=== PATIENT | female | born 1935 | race African-American/Black ===

== ENCOUNTER 2022-01-15 09:33 | Inpatient (IN) | payer OTHER ==
[~2022-01-15] VITALS: Ht 160 cm; Wt 63.2 kg
[2022-01-15] MEDS ORDERED: MECLIZINE 25MG TABLET PO ONE (10:15)
[2022-01-15] MEDS ORDERED: SODIUM CHLORIDE 0.9% 1,000 ML IV ONE (10:15)
[2022-01-15 10:25] LABS: BASOPHILS % 0.5 % (0.0-2.0); EOSINOPHILS % 1.1 % (0.0-5.0); HEMATOCRIT. 37.4 % (36.0-48.0); HEMOGLOBIN. 12.6 g/dL (12.0-16.0); MEAN CORPUSCULAR HEMOGLOBIN 31.7 pg (28.0-32.0); MEAN CORPUSCULAR VOLUME 93.9 fL (81.0-99.0); MEAN PLATELET VOLUME 9.9 fl (7.4-10.4); MONOCYTES % 6.2 % (2.0-8.0); NEUTROPHILS % 51.2 % (40.0-76.0); PLATELET 175 x1000/uL (130-400); RED BLOOD CELL COUNT 3.98 mill/uL (4.2-5.4); RED CELL DISTRIBUTION WIDTH 13.8 % (11.6-14.6)
[2022-01-15 10:34] LABS: PROTHROMBIN TIME 10.7 sec (9.6-11.0)
[2022-01-15 10:35] LABS: CHLORIDE 104 mEq/L (98-107)
[2022-01-15] MEDS ORDERED: POTASSIUM CHLORIDE 20MEQ TABLET SR PO ONE (11:45)
[2022-01-15] MEDS ORDERED: KCL 10MEQ/50ML PREMIX 50 ML IV ONE (11:45)
[2022-01-15 12:34] LABS: CLARITY URINE CLEAR (CLEAR); COLOR URINE YELLOW (YELLOW); KETONES URINE TRACE (NEGATIVE); LEUKOCYTE ESTERASE URINE 2+ (NEGATIVE); NITRITE URINE NEGATIVE (NEGATIVE); OCCULT BLOOD URINE NEGATIVE (NEGATIVE); PH URINE 6.5 (4.5-8.0); PROTEIN URINE TRACE (NEGATIVE); UROBILINOGEN URINE 0.2 E.U./dL (0.2-1.0)
[2022-01-15] MEDS ORDERED: CEFTRIAXONE 1 G PREMIX 50 ML IV ONE (13:45)
[2022-01-15] MEDS ORDERED: ASPIRIN 325MG TABLET PO ONE (13:45)
[2022-01-15 16:30] VITALS: BP 120/39
[2022-01-15 17:00] VITALS: BP 120/39
[2022-01-15 20:00] VITALS: BP 143/48
[2022-01-16] VITALS: BP 124/47
[2022-01-16] MEDS ORDERED: DIPHENHYDRAMINE 50MG/ML VIAL IV PRN (00:45)
[2022-01-16] MEDS ORDERED: MAGNESIUM/ALUMINUM HYDROXIDE/SIMETHICONE 30ML UDC PO PRN (00:45)
[2022-01-16] MEDS ORDERED: ACETAMINOPHEN 325MG TABLET PO PRN ×2 (00:45)
[2022-01-16] MEDS ORDERED: DEXTROSE 50% WATER 50ML SYRINGE IV PRN (00:45)
[2022-01-16] MEDS ORDERED: ZOLPIDEM TARTRATE 5MG TABLET PO PRN (00:45)
[2022-01-16] MEDS ORDERED: CLONIDINE 0.1MG TABLET PO PRN (00:45)
[2022-01-16] MEDS ORDERED: MECLIZINE 25MG TABLET PO PRN (00:45)
[2022-01-16] MEDS ORDERED: ONDANSETRON HCL 4MG/2ML INJ IV PRN (00:45)
[2022-01-16 04:00] VITALS: BP 114/34
[2022-01-16] MEDS: SODIUM CHLORIDE 0.9% INJ 3ML FLUSH IVF SCH ×2 (06:07→13:47)
[2022-01-16] MEDS: BLOOD SUGAR DIAGNOSTIC STRIP TEST SCH ×2 (06:07→12:00)
[2022-01-16] MEDS: INSULIN LISPRO 100 UNITS/ML SUBCUT SCH ×2 (06:08→12:01)
[2022-01-16 08:00] VITALS: BP 110/62
[2022-01-16 09:09] LABS: CHLORIDE 106 mEq/L (98-107)
[2022-01-16 09:19] LABS: HDL CHOLESTEROL 60 mg/dL (40-59); LDL CHOLESTEROL 76 mg/dL (5-100)
[2022-01-16 12:00] VITALS: BP 125/52
[2022-01-16 15:05] VITALS: BP 125/52
== END 2022-01-16 16:10 | disposition home or self-care (01) | DRG 149 ==
LOC: ER 09:33 → 7EST 14:38 → EDBEDREQTM 14:41 → EDBEDREQ 14:42 → ENRESERV 15:28
PROVIDERS: ADMIT Internal Medicine; ATTEND Internal Medicine
DX: R42 Dizziness and giddiness (principal); N39.0 Urinary tract infection, site not specified; E87.6 Hypokalemia; R73.03 Prediabetes; R55 Syncope and collapse
CPT/HCPCS: 36415; 71045; 80048; 80053; 80061; 81003; 82962; 83036; 83735; 84484; 85025; 93005; 97162; 99285; J0696; J3480; J7030; J8597